=== PATIENT | male | born 1955 | race Caucasian/White ===

== ENCOUNTER 2023-01-29 09:50 | Outpatient (CLI) | payer MEDICARE, SELFPAY ==
--- NOTE | 2023-01-29 10:05 | ECG_ITS ---
Measurements Intervals [place] Rate: 69 P: 34 [place]: 166 QRS: 35 QRSD: 94 T: -58 QT: 399 QTc: 428 Interpretive Statements SINUS RHYTHM BORDERLINE ST-T WAVE ABNORMALITY- INF/LAT LEADS BORDERLINE ECG NO PREVIOUS ECG AVAILABLE FOR COMPARISON Electronically Signed On 01-29-2023 10:24:16 CDT by Shen Carmona D.O.
== END 2023-01-29 09:51 | disposition home or self-care (01) ==
LOC: CHSCARD 10:00
PROVIDERS: PCP Physician Assistant; Visit Provider Physician Assistant
DX: I10 Essential (primary) hypertension (principal)
CPT/HCPCS: 93005